=== PATIENT | male | born 1950 | race American Indian/Alaskan Native ===

== ENCOUNTER 2016-07-30 06:36 | Day surgery (SDC) | payer MEDICARE, BC ==
[2016-07-30] MEDS ORDERED: Lactated Ringers 1,000 ML IV SCH (07:30)
[2016-07-30] MEDS ORDERED: Lidocaine 2% 100 MG/5 ML Syringe IVPUSH ONE (08:00)
[2016-07-30] MEDS ORDERED: Midazolam 1 MG/ML 2 ML SDV IV ONE (08:00)
[2016-07-30] MEDS ORDERED: Propofol 200 MG/20 ML SDV IV ONE (08:00)
--- NOTE | 2016-07-30 08:20 | PCM.OPNOTE ---
- General Post-Op/Procedure Note Date of Surgery/Procedure: 07/30/16 Operative Procedure(s): egd with bx Findings: healing duodenal ulcer gastritis Pre Op Diagnosis: duodenal ulcer Post-Op Diagnosis: duodenal ulcer. gastritis Anesthesia Technique: MAC Primary Surgeon: Bob Bunch Anesthesia Provider: Akbar Duenas Pathology: duodenal ulcer and stomach Complications: None Condition: Good Free Text/Narrative:: see dictation
[2016-07-30 10:26] VITALS: BP 147/80
--- NOTE | 2016-07-30 12:36 | OR ---
DATE OF OPERATION: 07/30/2016 SURGEON: Bob Bunch MD PROCEDURE PERFORMED: EGD with cold forceps biopsy. PREOPERATIVE DIAGNOSIS: History of duodenal ulcer. POSTOPERATIVE DIAGNOSES: Duodenal ulcer and gastritis. INDICATIONS FOR PROCEDURE: This is a 66-year-old white male who was found to have a duodenal ulcer in April. He presents now for exam to ensure healing. DESCRIPTION OF OPERATION: After an excellent IV sedation was administered, the bite block was inserted. The flexible endoscope was passed without difficulty down the patient's esophagus and into the stomach. The stomach was insufflated. The scope was passed through the pylorus to the second portion of the duodenum and slowly withdrawn. The following findings were noted. In the duodenal bulb, the same position, the ulcer is still present and appears to be healing slowly. Ulcer bed demonstrates no clot, visible vessel, or other worrisome signs. Biopsies were taken along the edge. Examination of the gastric mucosa reveals some inflammation and biopsies were taken of this area as well. The esophagus was unremarkable. The stomach was deflated. The scope was removed. The patient tolerated the procedure and was taken to recovery in good condition. /[id number] /MODL
== END 2016-07-30 09:26 | disposition home or self-care (01) ==
LOC: FB.SDS 06:36
PROVIDERS: ATTEND Surgery
PROC: 0DB98ZX Excision of Duodenum, Via Natural or Artificial Opening Endoscopic, Diagnostic (ICD-10-PCS; principal; 2016-07-30)
PROC: 0DB68ZX Excision of Stomach, Via Natural or Artificial Opening Endoscopic, Diagnostic (ICD-10-PCS; 2016-07-30)
DX: K26.9 Duodenal ulcer, unspecified as acute or chronic, without hemorrhage or perforation (principal); K29.90 Gastroduodenitis, unspecified, without bleeding; A04.8 Other specified bacterial intestinal infections; E11.9 Type 2 diabetes mellitus without complications; Z79.84 Long term (current) use of oral hypoglycemic drugs; I25.10 Atherosclerotic heart disease of native coronary artery without angina pectoris; I10 Essential (primary) hypertension; E78.00 Pure hypercholesterolemia, unspecified; M10.9 Gout, unspecified; I73.9 Peripheral vascular disease, unspecified; I48.0 Paroxysmal atrial fibrillation; Z79.82 Long term (current) use of aspirin; Z79.899 Other long term (current) drug therapy; Z87.891 Personal history of nicotine dependence
CPT/HCPCS: 00810; 43239; 82962; 88305; 88342; J2250; J2704; J7120

== ENCOUNTER 2021-11-18 18:03 | Emergency (ER) | payer MEDICARE, BC ==
[2021-11-18 19:05] LABS: ESTIMATED GFR 91 mL/min (>60)
[2021-11-18 19:24] VITALS: BP 150/85; PULSE 81
[2021-11-18] MEDS ORDERED: Sodium Chloride 0.9% 10 ML Syringe FLUSH PRN (19:47)
[2021-11-18] MEDS ORDERED: Acetaminophen/HYDROcodone 325-5 MG Tab PO STA (19:47)
[2021-11-18] MEDS ORDERED: Ketorolac 30 MG/ML SDV IVPUSH STA (19:47)
[2021-11-18] MEDS ORDERED: Sodium Chloride 0.9% 1,000 ML IV SCH (20:00)
[2021-11-18] MEDS ORDERED: Ibuprofen 800 MG Tab PO ONE (21:24)
== END 2021-11-18 22:10 | disposition home or self-care (01) ==
LOC: FB.ED 18:03
DX: S82.031A Displaced transverse fracture of right patella, initial encounter for closed fracture (principal); S51.011A Laceration without foreign body of right elbow, initial encounter; I25.10 Atherosclerotic heart disease of native coronary artery without angina pectoris; E78.00 Pure hypercholesterolemia, unspecified; I10 Essential (primary) hypertension; I25.2 Old myocardial infarction; E11.9 Type 2 diabetes mellitus without complications; E66.9 Obesity, unspecified; Z68.39 Body mass index [BMI] 39.0-39.9, adult; Z79.899 Other long term (current) drug therapy; Z79.84 Long term (current) use of oral hypoglycemic drugs; Z90.49 Acquired absence of other specified parts of digestive tract; Z87.891 Personal history of nicotine dependence; W10.9XXA Fall (on) (from) unspecified stairs and steps, initial encounter
CPT/HCPCS: 12001; 36415; 70450; 72072; 72100; 72125; 73030; 73562; 80053; 81001; 82550; 85025; 85610; 85730; 99282; 99284; A9270

== ENCOUNTER 2023-08-14 08:37 | Emergency (ER) | payer MEDICARE, BC ==
[2023-08-14 08:54] VITALS: PULSE 84
[2023-08-14] MEDS ORDERED: Sodium Chloride 0.9% 10 ML Syringe FLUSH PRN (09:00)
[2023-08-14] MEDS: Sodium Chloride 0.9% 1,000 ML IV SCH ×2 (09:10→11:28)
[2023-08-14 09:13] LABS: BASOPHILS PERCENT AUTO 0.5 % (0.3-3.8); EOSINOPHILS ABSOLUTE AUTO 0.1 x10-3/uL (0.0-0.6); EOSINOPHILS PERCENT AUTO 1.7 % (0.1-6.8); HEMATOCRIT 40.8 % (38.3-50.1); HEMOGLOBIN 13.7 g/dL (12.9-17.7); LYMPHOCYTES PERCENT AUTO 16.8 % (15.8-45.3); MEAN CORPUSCULAR HGB CONC 33.7 g/dL (28.7-35.3); MEAN CORPUSCULAR VOLUME 92.1 fL (80.8-98.7); MEAN PLATELET VOLUME 7.1 fL (6.7-11.0); MONOCYTES ABSOLUTE AUTO 0.8 x10-3/uL (0.0-1.2); MONOCYTES PERCENT AUTO 13.5 % (5.5-15.2); NEUTROPHILS ABSOLUTE AUTO 3.9 x10-3/uL (1.7-6.9); NEUTROPHILS PERCENT AUTO 67.5 % (40.3-71.8); PLATELET COUNT,PLT 209 x10(3)uL (117-477); RED BLOOD CELL COUNT 4.43 x10(6)uL (3.90-5.90); WHITE BLOOD CELL COUNT,WBC 5.8 x10-3/uL (3.2-10.1)
[2023-08-14 09:18] VITALS: BP 190/95
[2023-08-14 09:19] LABS: A/G RATIO 0.7; ALANINE AMINOTRANSFERASE,ALT 22 U/L (12-36); ALBUMIN 3.2 g/dL (3.2-4.6); ALKALINE PHOSPHATASE 107 IU/L (56-112); ASPARTATE AMNIOTRANSFERASE,AST 25 IU/L (5-25); BILIRUBIN TOTAL 1.2 mg/dL (0.1-1.3); BLOOD UREA NITROGEN,BUN 12 mg/dL (7-18); BUN/CREATININE RATIO 13.3 (9-20); CALCIUM 8.5 mg/dL (8.6-10.2); CARBON DIOXIDE,CO2 28 mmol/L (21-32); CREATININE 0.9 mg/dL (0.70-1.30); EST CRCL DRUG DOSING (CG) 72.01 mL/min; ESTIMATED GFR 90 mL/min (>60); GLUCOSE RANDOM 191 mg/dL (80-116); POTASSIUM,K 3.5 mmol/L (3.5-5.3); PROTEIN TOTAL,TP 7.6 g/dL (6.0-8.0); SODIUM,NA 124 mmol/L (135-145)
[2023-08-14 09:22] LABS: CHLORIDE,CL 88 mmol/L (100-110)
[2023-08-14 09:40] LABS: INFLUENZA A NAA NEGATIVE (NEGATIVE); INFLUENZA B NAA NEGATIVE (NEGATIVE); RESPIRATORY SYNCYTIAL VIR NAA NEGATIVE (NEGATIVE)
[2023-08-14 09:54] LABS: CORONAVIRUS COVID-19 NAA NEGATIVE (NEGATIVE)
[2023-08-14] MEDS: Albuterol/Ipratropium 3.0-0.5 MG/3 ML Neb Soln NEB ONE (09:55)
[2023-08-14 10:18] LABS: BILIRUBIN,URINE NEGATIVE (NEGATIVE); GLUCOSE,URINE 100 mg/dL (NORMAL); KETONES,URINE NEGATIVE (NEGATIVE); LEUKOCYTE ESTERASE,URINE NEGATIVE (NEGATIVE); NITRITE,URINE NEGATIVE (NEGATIVE); OCCULT BLOOD,URINE NEGATIVE (NEGATIVE); PROTEIN,URINE TRACE mg/dL (NEGATIVE); UROBILINOGEN,URINE NORMAL (NEGATIVE)
[2023-08-14 10:28] LABS: APPEARANCE,URINE CLEAR (CLEAR); BACTERIA,URINE RARE (NS); COLOR,URINE YELLOW (YELLOW); RBC,URINE 0-5 (0-5); SQUAMOUS EPITHELIAL CELLS,UR RARE (NS,R,O); WBC,URINE 0-5 (0-5)
[2023-08-14] MEDS: Furosemide 40 MG/4 ML VIAL IVPUSH ONE (12:02)
[2023-08-16 19:17] LABS: CREATININE, URINE - PER VOLUME 50 mg/dL; HOURS COLLECTED Not Provided hr; SODIUM, URINE - PER VOLUME 151 mmol/L; TOTAL VOLUME Not Provided mL
== END 2023-08-14 13:45 | disposition home or self-care (01) ==
LOC: FB.ED 08:37
DX: J20.8 Acute bronchitis due to other specified organisms (principal); E87.1 Hypo-osmolality and hyponatremia; I11.0 Hypertensive heart disease with heart failure; I50.9 Heart failure, unspecified; E78.00 Pure hypercholesterolemia, unspecified; I25.2 Old myocardial infarction; I25.10 Atherosclerotic heart disease of native coronary artery without angina pectoris; I48.91 Unspecified atrial fibrillation; Z95.5 Presence of coronary angioplasty implant and graft; E11.9 Type 2 diabetes mellitus without complications; E66.9 Obesity, unspecified; Z79.84 Long term (current) use of oral hypoglycemic drugs; Z79.02 Long term (current) use of antithrombotics/antiplatelets; Z79.899 Other long term (current) drug therapy
CPT/HCPCS: 0241U; 36415; 71045; 80053; 80307; 81001; 83605; 83880; 84295; 84300; 84484; 85025; 85379; 86140; 93005; 94640; 96361; 96374; 99285-25; J1940; J7030; J7620

== ENCOUNTER 2023-10-17 19:27 | Emergency (ER) | payer MEDICARE, BC ==
[2023-10-17] MEDS: Furosemide 40 MG/4 ML VIAL ONE (19:45)
[2023-10-17] MEDS: Albuterol/Ipratropium 3.0-0.5 MG/3 ML Neb Soln NEB ONE (19:47)
[2023-10-17] MEDS: Furosemide 40 MG/4 ML VIAL IVPUSH ONE (19:49)
[2023-10-17 19:59] LABS: BLOOD UREA NITROGEN,BUN 15 mg/dL (7-18); CALCIUM 9.1 mg/dL (8.6-10.2); CARBON DIOXIDE,CO2 20 mmol/L (21-32); CHLORIDE,CL 91 mmol/L (100-110); CREATININE 1.5 mg/dL (0.70-1.30); ESTIMATED GFR 49 mL/min (>60); GLUCOSE RANDOM 339 mg/dL (80-116); SODIUM,NA 126 mmol/L (135-145)
[2023-10-17 20:04] LABS: A/G RATIO 0.7; ALANINE AMINOTRANSFERASE,ALT 17 U/L (12-36); ALBUMIN 3.4 g/dL (3.2-4.6); ALKALINE PHOSPHATASE 92 IU/L (56-112); ASPARTATE AMNIOTRANSFERASE,AST 25 IU/L (5-25); BILIRUBIN TOTAL 1.5 mg/dL (0.1-1.3)
[2023-10-17 20:15] LABS: HEMATOCRIT 45.8 % (38.3-50.1); HEMOGLOBIN 14.8 g/dL (12.9-17.7); MEAN CORPUSCULAR HEMOGLOBIN 30.6 pg (27.0-33.3); MEAN CORPUSCULAR HGB CONC 32.2 g/dL (28.7-35.3); MEAN PLATELET VOLUME 7.9 fL (6.7-11.0); PLATELET COUNT,PLT 348 x10(3)uL (117-477); RED BLOOD CELL COUNT 4.82 x10(6)uL (3.90-5.90); WHITE BLOOD CELL COUNT,WBC 29.2 x10-3/uL (3.2-10.1)
[2023-10-17 20:19] LABS: TROPONIN I 2852.4 pg/mL (4.0-60.3)
[2023-10-17 20:20] LABS: C-REACTIVE PROTEIN 3.81 mg/dL (<0.50)
[2023-10-17 20:36] VITALS: PULSE 109
[2023-10-17] MEDS: Cefepime 2 GM Vial IVPUSH ONE (20:50)
[2023-10-17] MEDS: Heparin Sodium 5,000 Units/ML Vial IVPUSH ONE (20:53)
[2023-10-17] MEDS: Sodium Chloride 0.9% 10 ML Syringe FLUSH PRN (20:55)
[2023-10-17] MEDS: Heparin Sodium/0.45% NaCl 500 ML IV SCH (20:59)
[2023-10-17] MEDS: Heparin Sodium/0.45% NaCl 25,000 UNITS/500 ML BAG IV SCH (20:59)
[2023-10-17 21:02] LABS: BAND PERCENT MAN 4 % (0-6); LYMPHOCYTES PERCENT MAN 4 % (13-37); MONOCYTES PERCENT MAN 2 % (4-12); SEG NEUTROPHILS PERCENT MAN 90 % (46-82)
[2023-10-18 01:44] VITALS: BP 151/87
== END 2023-10-17 21:55 ==
LOC: FB.ED 19:27
DX: A41.9 Sepsis, unspecified organism (principal); I21.4 Non-ST elevation (NSTEMI) myocardial infarction; J96.90 Respiratory failure, unspecified, unspecified whether with hypoxia or hypercapnia; I10 Essential (primary) hypertension; I25.10 Atherosclerotic heart disease of native coronary artery without angina pectoris; I25.2 Old myocardial infarction; E66.9 Obesity, unspecified; E11.9 Type 2 diabetes mellitus without complications; Z79.84 Long term (current) use of oral hypoglycemic drugs; Z79.899 Other long term (current) drug therapy; Z90.49 Acquired absence of other specified parts of digestive tract; Z87.891 Personal history of nicotine dependence
CPT/HCPCS: 36415; 71045; 80053; 83605; 83880; 84484; 85025; 86140; 87040; 93005; 96365; 96375; 99285; J0692; J1644; J1940; J3490; J7620

== ENCOUNTER 2025-03-12 06:44 | Day surgery (SDC) | payer MEDICARE, BC ==
[2025-03-12] MEDS ORDERED: Sodium Chloride 0.9% 10 ML Syringe FLUSH PRN (06:45)
[2025-03-12] MEDS ORDERED: fentaNYL 100 MCG/2 ML SDV IV ONE (06:45)
[2025-03-12] MEDS ORDERED: Midazolam 1 MG/ML 2 ML SDV IV ONE (06:45)
[2025-03-12 07:04] VITALS: BP 105/38; PULSE 60
[2025-03-12] MEDS: Lactated Ringers 1,000 ML IV SCH (07:38)
[2025-03-12] MEDS: acetaZOLAMIDE 500 MG Cap.ER PO ONE (08:24)
== END 2025-03-12 08:46 | disposition home or self-care (01) ==
LOC: FB.SDS 06:44
PROVIDERS: ATTEND Ophthalmology
DX: E11.36 Type 2 diabetes mellitus with diabetic cataract (principal); H25.811 Combined forms of age-related cataract, right eye; H25.9 Unspecified age-related cataract; I48.0 Paroxysmal atrial fibrillation; I11.0 Hypertensive heart disease with heart failure; I50.42 Chronic combined systolic (congestive) and diastolic (congestive) heart failure; E78.00 Pure hypercholesterolemia, unspecified; Z79.01 Long term (current) use of anticoagulants; Z88.8 Allergy status to other drugs, medicaments and biological substances; Z87.891 Personal history of nicotine dependence; Z79.899 Other long term (current) drug therapy
CPT/HCPCS: 00142; 99100; A9270-GY; J2250; J3010; J7120; V2632

== ENCOUNTER 2025-03-26 08:37 | Day surgery (SDC) | payer MEDICARE, BC ==
[2025-03-26] MEDS ORDERED: Midazolam 1 MG/ML 2 ML SDV IV ONE (08:38)
[2025-03-26] MEDS ORDERED: fentaNYL 100 MCG/2 ML SDV IV ONE (08:38)
[2025-03-26] MEDS ORDERED: Sodium Chloride 0.9% 10 ML Syringe FLUSH PRN (08:45)
[2025-03-26] MEDS: Lactated Ringers 1,000 ML IV SCH (09:10)
[2025-03-26] MEDS: acetaZOLAMIDE 500 MG Cap.ER PO ONE (10:56)
[2025-03-26 14:04] VITALS: BP 101/76; PULSE 54
== END 2025-03-26 11:10 | disposition home or self-care (01) ==
LOC: FB.SDS 08:37
PROVIDERS: ATTEND Ophthalmology
DX: E11.36 Type 2 diabetes mellitus with diabetic cataract (principal); H26.9 Unspecified cataract; I25.10 Atherosclerotic heart disease of native coronary artery without angina pectoris; I10 Essential (primary) hypertension; I48.0 Paroxysmal atrial fibrillation; E78.00 Pure hypercholesterolemia, unspecified; Z87.891 Personal history of nicotine dependence; Z79.01 Long term (current) use of anticoagulants; Z79.899 Other long term (current) drug therapy
CPT/HCPCS: 66984; 82947; A9270; J2250; J3010; J7120; V2632